=== PATIENT | male | born 1990 | race Hispanic/Latino ===

== ENCOUNTER 2021-07-05 11:25 | Emergency (ER) | payer OTHER ==
[~2021-07-05] VITALS: Ht 180.3 cm; Wt 65.8 kg
== END 2021-07-05 14:44 | disposition home or self-care (01) ==
LOC: ED 11:25 → EDBD 11:26 → ED 11:26
DX: Z03.821 Encounter for observation for suspected ingested foreign body ruled out (principal); Z20.822 Contact with and (suspected) exposure to COVID-19
CPT/HCPCS: 71045; 71250; 74018; 74176; 99284-25; C9803; U0003